=== PATIENT | male | born 1995 | race Two or more races ===

== ENCOUNTER 2021-08-19 11:36 | Emergency (ER) | payer MEDICAID, OTHER ==
[~2021-08-19] VITALS: Ht 177.8 cm; Wt 133.8 kg
[2021-08-19 11:36] VITALS: BP 151/98
[2021-08-19] MEDS ORDERED: LACTATED RINGER'S 1,000 ML IV ONE (12:00)
[2021-08-19] MEDS ORDERED: ONDANSETRON HCL 4 MG/2 ML VIAL IV ONE (12:00)
[2021-08-19 13:51] LABS: Basophils # (auto) 0.1 10 ^3/uL (0-0.2); Basophils % (auto) 0.4 % (0.0-2.0); Eosinophils # (auto) 0 10 ^3/uL (0-0.8); Hematocrit 43.7 % (41.0-53.0); Hemoglobin 15.1 g/dL (13.5-17.5); Lymphocytes # (auto) 1.9 10 ^3/uL (0.4-5.4); Lymphocytes % (auto) 14.2 % (10.0-50.0); Mean Corpuscular Hemoglobin 31.3 pg (28.0-32.0); Mean Corpuscular Hgb Conc. 34.6 g/dL (32.0-36.0); Mean Corpuscular Volume 90.6 fL (80.0-100.0); Monocytes # (auto) 1.5 10 ^3/uL (0-1.3); Monocytes % (auto) 11.1 % (0.0-12.0); Neutrophils # (auto) 9.9 10 ^3/uL (1.6-8.6); Neutrophils % (auto) 74.3 % (37.0-80.0); Red Blood Cells 4.82 10^6/uL (4.5-5.90); Red Cell Distribution Width 13.1 % (11.8-14.3); White Blood Cell 13.4 10^3/uL (4.4-10.8)
[2021-08-19 14:04] LABS: Calcium 9.4 mg/dL (8.5-10.1); Potassium 3.9 mmol/L (3.5-5.1)
[2021-08-19 14:07] LABS: BUN/Creatinine Ratio 11.5
[2021-08-19 14:10] LABS: Total Protein 8.9 g/dL (6.4-8.2)
[2021-08-19] MEDS ORDERED: SODIUM CHLORIDE 0.9% 1,000 ML IV ONE (15:30)
[2021-08-19 15:51] LABS: Urine Bacteria NONE SEEN /hpf (None Seen); Urine Blood Negative /uL (Negative); Urine Specific Gravity 1.045 (1.001-1.035); Urine WBC 2 /hpf (0 - 3)
[2021-08-19] MEDS ORDERED: METF-370 PO (16:23)
[2021-08-19] MEDS ORDERED: IBUP800T27 PO (16:23)
== END 2021-08-19 16:05 | disposition left against medical advice (07) ==
LOC: ER 11:36
DX: E11.9 Type 2 diabetes mellitus without complications (principal); R00.0 Tachycardia, unspecified; M10.9 Gout, unspecified
CPT/HCPCS: 36415; 36600; 80053; 81001; 82010; 82805; 82962; 85025; 93005; 96361; 96374; 99284; J2405; J7030